=== PATIENT | male | born 1995 | race Caucasian/White ===

== ENCOUNTER 2018-04-10 16:46 | Emergency (ER) | payer MEDICAID ==
--- NOTE | 2018-04-10 17:07 | EDPHY ---
H & P Stated Complaint: FELL ICE SKATING LAC TO R UPPER EYELID - Personal History Current Tetanus Diphtheria and Acellular Pertussis (TDAP): Yes - Medical/Surgical History Hx Asthma: No Hx Chronic Respiratory Disease: No Hx Diabetes: No Hx Cardiac Disease: No Hx Renal Disease: No Hx Cirrhosis: No Hx Alcoholism: No Hx HIV/AIDS: No Hx Splenectomy or Spleen Trauma: No Other PMH: DENIES - Social History Smoking Status: Never smoked Time Seen by Provider: 04/10/18 16:55 HPI/ROS: CHIEF COMPLAINT: Right eyelid laceration HISTORY OF PRESENT ILLNESS: 22-year-old male no vasculopathy or coagulopathy history, no anticoagulant use, with up-to-date tetanus arrives via private vehicle complaining of right eyelid laceration after he was ice skating, fell forward impacting his head. No loss of consciousness. No nausea or vomiting. No headache. No midline C-spine pain. No amnesia . REVIEW OF SYSTEMS: 10 systems reviewed and negative with the exception of the elements mentioned in the history of present illness PAST MEDICAL/SURGICAL HISTORY: no anticoagulant use, no relevant medical/ surgical history SOCIAL HISTORY: denies alcohol use at time of incident PHYSICAL EXAM 1) GENERAL: Well-developed, well-nourished, alert and oriented. Appears to be in no acute distress. Answering questions appropriately. 2) HEAD: Normocephalic, atraumatic 3) HEENT: Pupils equal, round, reactive to light bilaterally. Right eyelid, not crossing the lid margin patient has a 2.5 cm linear laceration. Negative Horners. Nasopharynx, oropharynx, clear. No deformity or angulation of nose. No septal hematoma. No rhinorrhea. No oral trauma. Ears bilaterally with normal tympanic membranes. No hemotympanum. No fluid or blood in the external auditory canal. No raccoon eyes. No Carroll sign. Teeth are normally aligned with no gross malocclusion, TMJ bilaterally nontender, facial bones nontender including the zygomatic arch, maxilla mandible. 4) NECK: No cervical collar is on. Posterior cervical spine is nontender, no stepoff, no effusion. Full range of motion which does not elicit any midline cervical spine pain, no posterior midline tenderness, no step-off. 5) LUNGS: Clear to auscultation bilaterally, no wheezes, no rhonchi, no retractions. No obvious signs of trauma. No chest wall pain. No flaring, no grunting. Moving symmetrically. No crepitus. 6) HEART: [Regular rate and rhythm, 7) ABDOMEN: No guarding, no rebound, no focal tenderness, no peritoneal signs, no signs of trauma, no ecchymosis 8) MUSCULOSKELETAL: Moving all extremities, no focal areas of tenderness, no obvious trauma. 9) BACK: No midline vertebral tenderness, no fluctuance, no step-off, no obvious trauma, no visual or palpable abnormality. 10) SKIN: laceration right eyelid DIFFERENTIAL DIAGNOSIS: Not necessarily in any particular order, my differential diagnosis includes, but is not limited to, concussion, skull fracture, intraparenchymal contusion, subarachnoid, subdural and epidural hematoma. The patient understands that this diagnosis is provisional and can never be 100% accurate. (Robby Almeida) Constitutional: Initial Vital Signs Temperature (C) 36.5 C 04/10/18 16:51 Heart Rate 63 04/10/18 16:51 Respiratory Rate 18 04/10/18 16:51 Blood Pressure 115/78 04/10/18 16:51 O2 Sat (%) 99 04/10/18 16:51 O2 Delivery Mode Room Air Allergies/Adverse Reactions: No Known Allergies Allergy (Unverified 04/10/18 16:50) Home Medications: Medication Instructions Recorded NK [No Known Home Meds] 04/10/18 ED Images - Head Eyes Right/Left: 1 - Laceration Medical Decision Making Procedures: Procedure: Laceration repair. I explained the indications, risks and benefits for both laceration repair and anesthetic administration. Verbal consent was obtained from the patient. The laceration on the right eyelid was anesthetized using 0.5% bupivicaine with epinephrine. After anesthetic administered the patient was observed for a period of time and had no apparent adverse effects. The wound was cleaned, prepped, draped in normal sterile fashion and explored to its base. No foreign body seen, no foreign bodies palpated. There were no deep structures involved. The wound was repaired with 8, 6-0 simple interrupted Prolene sutures. The wound repair was complex due to the cosmetic location of his wound importance of realignment of anatomic landmarks. The procedure was performed by myself. Patient has been informed that scarring will occur, although efforts have been made to minimize this. (Robby Almeida) ED Course/Re-evaluation: Re-evaluation with serial exams was recently at 5:57 p.m.. Answering questions appropriately. Patient has negative [place] head and C-spine decision-making tool. I do not think that imaging studies indicated at this time. His wound has been primarily closed by myself in the ER. He has no involvement of the lid margin. Sutures to be removed in 5 days. My usual customary head injury precautions instructions provided. He feels comfortable being discharged. Care of patient under supervision of secondary supervising physician Dr Marti (Robby Almeida) I did not see this patient while he was in the emergency department. However his care was discussed with the PA while the patient was in the department. I agree with treatment plan and management (David Marti) Departure - Departure Disposition: Home, Routine, Self-Care Clinical Impression: Activity, ice skating, Ice skating rink (indoor) (outdoor) as the place of occurrence of the external cause Eyelid laceration Qualifiers: Encounter type: initial encounter Laterality: right Qualified Code(s): S01.111A - Laceration without foreign body of right eyelid and periocular area, initial encounter Head injury Qualifiers: Encounter type: initial encounter Qualified Code(s): S09.90XA - Unspecified injury of head, initial encounter Condition: Good Instructions: Laceration (ED), Head Injury (ED) Additional Instructions: ALTHOUGH THERE IS NO EVIDENCE OF SERIOUS HEAD INJURY AT THIS TIME, DELAYED SIGNS CAN APPEAR 24 TO 48 HOURS AFTER INJURY. PLEASE RETURN TO THE EMERGENCY DEPARTMENT (ED) IMMEDIATELY IF YOU HAVE INCREASED HEADACHE, PERSISTENT HEADACHE , VOMITING, WEAKNESS, CONFUSION OR VISUAL PROBLEMS. WE RECOMMEND THAT YOU DO NOT RESUME CONTACT SPORTS OR ACTIVITIES THAT TAKE COORDINATION OR BALANCE SUCH SKIING OR RIDING A BICYCLE UNTIL CLEARED TO DO SO BY YOUR DOCTOR OR BY A NEUROLOGIST. Referrals: Return, to the ER in 5 days for suture removal [Other] - As per Instructions
[2018-04-10 18:10] VITALS: BP 116/78
== END 2018-04-10 18:10 | disposition home or self-care (01) ==
PROC: 08QNXZZ Repair Right Upper Eyelid, External Approach (ICD-10-PCS; principal; 2018-04-10)
DX: S01.111A Laceration without foreign body of right eyelid and periocular area, initial encounter (principal); V00.218A Other ice-skates accident, initial encounter; Y92.330 Ice skating rink (indoor) (outdoor) as the place of occurrence of the external cause; Y93.21 Activity, ice skating; Y99.9 Unspecified external cause status